=== PATIENT | female | born 1965 | race African-American/Black ===

== ENCOUNTER 2019-08-21 15:01 | Emergency (ER) | payer MEDICAID ==
[~2019-08-21] VITALS: Ht 165.1 cm; Wt 107.0 kg
[2019-08-21 15:17] VITALS: BP 134/75
[2019-08-21 15:39] LABS: BILIRUBIN, URINE NEGATIVE (NEGATIVE); COLOR,URINE AMBER; GLUCOSE, URINE (UA) 4+ (NEGATIVE); KETONES,URINE 1+ (NEGATIVE); LEUKOCYTE ESTERASE ,URINE 1+ (NEGATIVE); NITRITE,URINE NEGATIVE (NEGATIVE); PH,URINE 5 (4.5-8.0); PROTEIN,URINE 1+ (NEGATIVE); UROBILINOGEN,URINE 1 MG/DL (0.0-1.0)
[2019-08-21 15:43] LABS: APPEARANCE,URINE SLIGHTLY CLOUDY
--- NOTE | 2019-08-21 15:56 | Emergency Room Report ---
History of Present Illness General Chief Complaint: Female Urogenital Problems Source: Patient Present Illness HPI 53-year-old female with no known significant past medical history here complaining of 1 week of urinary frequency and urgency and dysuria. Also complains of suprapubic pain and pressure. Complains of minimal pelvic pain. Patient is postmenopausal. Denies any fever and chills, flank pain, nausea vomiting. Denies any vaginal discharge. Denies being sexually active. Has not taken medication for symptom relief. Allergies: Coded Allergies: PENICILLINS (Verified Allergy, Unknown, 08/21/19) Patient History Past Medical History: see triage record Past Surgical History: none Pertinent Family History: none Now: No Immunizations: UTD Reviewed Nursing Documentation: PMH: Agreed; PSxH: Agreed Nursing Documentation-PMH Past Medical History: No Stated History Review of Systems All Other Systems: negative except mentioned in HPI Physical Exam Vital Signs Date Time Temp Pulse Resp B/P (MAP) Pulse Ox O2 Delivery O2 Flow Rate FiO2 08/21/19 15:17 98.4 102 18 134/75 (94) 99 Room Air Sp02 EP Interpretation: reviewed, normal General Appearance: no apparent distress, alert, GCS 15, non-toxic Head: normocephalic, atraumatic Eyes: bilateral eye normal inspection, bilateral eye PERRL ENT: hearing grossly normal, normal pharynx, no angioedema, normal voice Neck: full range of motion, supple/symm/no masses Respiratory: chest non-tender, lungs clear, normal breath sounds, no rhonchi, no wheezing, speaking full sentences Cardiovascular #1: regular rate, rhythm, no edema, no murmur Gastrointestinal: non tender, soft, no mass, no organomegaly, no peritonitis, no bruit, no guarding, no hernia Genitourinary: no CVA tenderness Musculoskeletal: back normal Neurologic: alert, motor strength/tone normal, oriented x3, sensory intact, responsive, speech normal Psychiatric: judgement/insight normal, memory normal, mood/affect normal, no suicidal/homicidal ideation Skin: no rash Lymphatic: no adenopathy Medical Decision Making PA Attestation All my diagnosis and treatment plans were reviewed ad discussed with my supervising physician Dr. Lamar Diagnostic Impression: Primary Impression: UTI (urinary tract infection) ER Course 53-year-old female with no known significant past medical history here complaining of 1 week of urinary frequency and urgency and dysuria. Also complains of suprapubic pain and pressure. Complains of minimal pelvic pain. Patient is postmenopausal. Denies any fever and chills, flank pain, nausea vomiting. Denies any vaginal discharge. Denies being sexually active. Has not taken medication for symptom relief. Ddx considered but are not limited to: UTI, pyelonephritis, urinary incontinence , prolapsed bladder Vital signs: are WNL, pt. is afebrile H&PE are most consistent with: UTI, pelvic pain ORDERS: UA, urine cx, Keflex, Pyridium, Motrin ED INTERVENTIONS: None required at this time. DISCHARGE: At this time pt. is stable for d/c to home. Will provide printed patient care instructions, and any necessary prescriptions. Care plan and follow up instructions have been discussed with the patient prior to discharge. Take medication as directed, follow-up primary care provider, at this time no other imaging or blood work needed as your symptoms are secondary to UTI however if continues to be symptomatic need further evaluation perhaps pelvic ultrasound. If worsening symptoms return to the emergency room Last Vital Signs Date Time Temp Pulse Resp B/P (MAP) Pulse Ox O2 Delivery O2 Flow Rate FiO2 08/21/19 15:17 98.4 102 18 134/75 99 Room Air Disposition: HOME, SELF-CARE Condition: Stable Scripts Ibuprofen* (MOTRIN*) 600 Mg Tablet 600 MG ORAL Q8H PRN for For Pain, #30 TAB 0 Refills Prov: Deepthi Maddox 08/21/19 Phenazopyridine Hcl* (PYRIDIUM*) 200 Mg Tablet 200 MG ORAL THREE TIMES A DAY for 2 Days, #6 TAB 0 Refills Prov: Deepthi Maddox 08/21/19 Cephalexin* (KEFLEX*) 500 Mg Capsule 500 MG ORAL EVERY 12 HOURS for 7 Days, #14 CAP 0 Refills Prov: Deepthi Maddox 08/21/19 Patient Instructions: Urinary Tract Infection Additional Instructions: Take medication as directed, follow-up with your primary care provider, if continued suprapubic pain need to be seen by primary doctor for ultrasound. At this time no further imaging or blood work is needed. Deepthi Maddox Aug 21, 2019 15:56
[2019-08-21] MEDS ORDERED: CEPHALEXIN500 MG ORAL (15:57)
[2019-08-21] MEDS ORDERED: PHENAZOPYRIDIN200 MG ORAL (15:57)
[2019-08-21] MEDS ORDERED: IBUPROFEN600 MG ORAL (15:57)
[2019-08-21 16:13] VITALS: BP 134/75
== END 2019-08-21 16:15 | disposition home or self-care (01) ==
LOC: EMR 16:14
DX: N39.0 Urinary tract infection, site not specified (principal); Z88.0 Allergy status to penicillin
CPT/HCPCS: 81003; 87086; Z7502; 99283

== ENCOUNTER 2020-02-17 16:05 | Emergency (ER) | payer MEDICAID ==
[~2020-02-17] VITALS: Ht 165.1 cm; Wt 99.8 kg
[~2020-02-17 16:05] MED LIST: CEPHALEXIN500 MG ORAL; IBUPROFEN600 MG ORAL; PHENAZOPYRIDIN200 MG ORAL
--- NOTE | 2020-02-17 16:14 | NUR ---
ED Nurse Note: Pt ambulated to ed c/o "boil" pelvis. pt asked to get dressed into gown. pt has visible skin tear below stomach and above pelvis. redness and abscess like bump noted on jing pubis. pt reports this has been here for 3 weeks. pt denies itching, burning upon urination.
[2020-02-17 16:15] VITALS: BP 156/83
[2020-02-17] MEDS ORDERED: Omnipaque-300 100ml vial INJ PRN (16:30)
--- NOTE | 2020-02-17 16:37 | NUR ---
ED Nurse Note: Blood drawn, IV site established; patent and intact. Blood specimen sent to lab
--- NOTE | 2020-02-17 17:04 | NUR ---
ED Nurse Note: Urine specimen colleted and sent to lab.
--- NOTE | 2020-02-17 17:04 | Emergency Room Report ---
History of Present Illness General Chief Complaint: Skin Rash/Abscess Source: Patient Present Illness HPI 54 YO Female presents to the ED c/o 02/26 in severity localized pain, swelling, and erythema of her mid pubic and lower abdominal area x 1 month. Pt. reports progressive symptoms. She denies fevers but reports chills. She denies hx of immune compromise/DM. Pt. is not sure when her last tetanus vaccination was. She denies nausea, vomiting, constipation or diarrhea. Patient denies recent surgery in the affected area. Allergies: Coded Allergies: PENICILLINS (Verified Allergy, Unknown, 08/21/19) COVID-19 Screening Contact w/high risk pt: No Experienced COVID-19 symptoms?: No COVID-19 Testing performed HEALTH INFORMATION DIRECTOR: No Patient History Past Medical History: see triage record Past Surgical History: none Pertinent Family History: none Last Menstrual Period: na Reviewed Nursing Documentation: PMH: Agreed; PSxH: Agreed Nursing Documentation-PMH Past Medical History: No Stated History Hx Cardiac Problems: No Hx Hypertension: No Hx Pacemaker: No Hx Asthma: No Hx COPD: No Hx Diabetes: No Hx Cancer: No Hx Gastrointestinal Problems: No Hx Dialysis: No History Of Psychiatric Problem: No Hx Neurological Problems: No Hx Cerebrovascular Accident: No Hx Seizures: No Review of Systems All Other Systems: negative except mentioned in HPI Physical Exam Vital Signs Date Time Temp Pulse Resp B/P (MAP) Pulse Ox O2 Delivery O2 Flow Rate FiO2 02/17/20 16:09 97.9 111 15 156/83 (107) 97 Room Air Sp02 EP Interpretation: reviewed, normal General Appearance: no apparent distress, alert, GCS 15, non-toxic, obese Head: normocephalic, atraumatic Eyes: bilateral eye normal inspection, bilateral eye PERRL ENT: hearing grossly normal, normal voice Neck: full range of motion Respiratory: lungs clear, normal breath sounds, speaking full sentences Cardiovascular #1: regular rate, rhythm Gastrointestinal: normal bowel sounds, soft, non-distended, other - macerated skin with palpable induration, with warmth and erythema to the midline lower abdomen with extensions down to the mid pubis. Musculoskeletal: normal range of motion, gait/station normal, non-tender Neurologic: alert, motor strength/tone normal, oriented x3, sensory intact, responsive, speech normal Psychiatric: judgement/insight normal Skin: other - macerated skin with palpable induration, with warmth and erythema to the midline lower abdomen with extensions down to the mid pubis. Medical Decision Making PA Attestation Dr. Wilson is my supervising Physician whom patient management has been discussed with. Diagnostic Impression: Primary Impression: Abdominal wall abscess ER Course 54 YO Female presents to the ED c/o 02/26 in severity localized pain, swelling, and erythema of her mid pubic and lower abdominal area x 1 month. Pt. reports progressive symptoms. She denies fevers but reports chills. She denies hx of immune compromise/DM. Pt. is not sure when her last tetanus vaccination was. She denies nausea, vomiting, constipation or diarrhea. Patient denies recent surgery in the affected area. Ddx considered but are not limited to cellulitis, abscess, cystic acne, necrotizing fasciitis, insect bite. Just to name a few. Vital signs: PT. is tachycardic, remaining VS are WNL, pt. is afebrile H&PE are most consistent with abscess with possible involvement of the abdominal wall. ORDERS: -CBC: -CMP: elevated glucose of 320 -Lactic Acid: -Troponin: 0.00 -EKG: WNL 90 BPM NSR -Blood Cultures: Pending - CT Abdomen and Pelvis w. Contrast. ED INTERVENTIONS: -- Tetanus - 1 liter NS - 4mg Morphine IV DISCHARGE: At this time pt. is stable for d/c to home. Will provide printed patient care instructions, and any necessary prescriptions. Care plan and follow up instructions have been discussed with the patient prior to discharge. Labs Test 02/17/20 16:36 02/17/20 17:00 White Blood Count 8.7 K/UL (4.8-10.8) Red Blood Count 4.86 M/UL (4.20-5.40) Hemoglobin 15.1 G/DL (12.0-16.0) Hematocrit 45.8 % (37.0-47.0) Mean Corpuscular Volume 94 FL (80-99) Mean Corpuscular Hemoglobin 31.0 PG (27.0-31.0) Mean Corpuscular Hemoglobin Concent 32.9 G/DL (32.0-36.0) Red Cell Distribution Width 12.4 % (11.6-14.8) Platelet Count 111 K/UL (150-450) Mean Platelet Volume 15.2 FL (6.5-10.1) Neutrophils (%) (Auto) 57.4 % (45.0-75.0) Lymphocytes (%) (Auto) 31.7 % (20.0-45.0) Monocytes (%) (Auto) 8.0 % (1.0-10.0) Eosinophils (%) (Auto) 1.3 % (0.0-3.0) Basophils (%) (Auto) 1.6 % (0.0-2.0) Sodium Level 134 MMOL/L (136-145) Potassium Level 3.5 MMOL/L (3.5-5.1) Chloride Level 98 MMOL/L (98-107) Carbon Dioxide Level 27 MMOL/L (21-32) Anion Gap 10 mmol/L (5-15) Blood Urea Nitrogen 11 mg/dL (7-18) Creatinine 0.9 MG/DL (0.55-1.30) Estimat Glomerular Filtration Rate > 60 mL/min (>60) Glucose Level 320 MG/DL (74-106) Lactic Acid Level 1.90 mmol/L (0.4-2.0) Calcium Level 10.3 MG/DL (8.5-10.1) Total Bilirubin 0.3 MG/DL (0.2-1.0) Aspartate Amino Transf (AST/SGOT) 14 U/L (15-37) Alanine Aminotransferase (ALT/SGPT) 18 U/L (12-78) Alkaline Phosphatase 139 U/L (46-116) Total Creatine Kinase 69 U/L (26-308) Troponin I 0.000 ng/mL (0.000-0.056) Total Protein 8.0 G/DL (6.4-8.2) Albumin 3.0 G/DL (3.4-5.0) Globulin 5.0 g/dL Albumin/Globulin Ratio 0.6 (1.0-2.7) Urine Color Yellow Urine Appearance Clear Urine pH 5 (4.5-8.0) Urine Specific [place] 1.025 (1.005-1.035) Urine Protein Negative (NEGATIVE) Urine Glucose (UA) 4+ (NEGATIVE) Urine Ketones 1+ (NEGATIVE) Urine Blood Negative (NEGATIVE) Urine Nitrite Negative (NEGATIVE) Urine Bilirubin Negative (NEGATIVE) Urine Urobilinogen Normal MG/DL (0.0-1.0) Urine Leukocyte Esterase Negative (NEGATIVE) EKG Diagnostic Results EP Interpretation: Dr. Wilson Rate: normal - 90 bpm Rhythm: NSR ST Segments: no acute changes ASA given to the pt in ED: No PA Scribe Text This Interpretation was scribed by SHANTE Lopez. CT/MRI/US Diagnostic Results CT/MRI/US Diagnostic Results : Imaging Test Ordered: - CT Abdomen and Pelvis w. Contrast. Impression " " --Per official radiology report- Please see report for specific details. Last Vital Signs Date Time Temp Pulse Resp B/P (MAP) Pulse Ox O2 Delivery O2 Flow Rate FiO2 02/17/20 16:15 97.9 78 15 156/83 97 Room Air Status: improved Disposition: HOME, SELF-CARE Condition: Stable Scripts Hydrocodone Bit/Acetaminophen 5-325* (NORCO 5-325 TABLET*) 1 Each Tablet 1 TAB ORAL Q6H PRN for FOR PAIN, #15 TAB 0 Refills Prov: Lily Lopez 02/17/20 Ciprofloxacin* (CIPRO*) 500 Mg Tablet 500 MG PO BID for 7 Days, #14 TAB Prov: Lily Lopez 02/17/20 Referrals: NON PHYSICIAN (PCP) Phu Romero Patient Instructions: Abscess Additional Instructions: Take medications as directed. Do not drink alcohol, drive, or operate heavy machinery while taking [place] as this may cause drowsiness. ~~~~~ FOLLOW UP WITH SURGEON on MONDAY @ 10am. Dr. Romero's office info provided on next page. Return sooner to ED if new symptoms occur, or current symptoms become worse. - Please note that this Emergency Department Report was dictated using [employer] operator reformer technology software, occasionally this can lead to erroneous entry secondary to interpretation by the dictation equipment. Lily Lopez Feb 17, 2020 17:03
[2020-02-17 17:08] LABS: ANION GAP 10 mmol/L (5-15); BLOOD UREA NITROGEN 11 mg/dL (7-18); CALCIUM 10.3 MG/DL (8.5-10.1); CARBON DIOXIDE 27 MMOL/L (21-32); CHLORIDE 98 MMOL/L (98-107); CREATININE 0.9 MG/DL (0.55-1.30); POTASSIUM 3.5 MMOL/L (3.5-5.1); SODIUM 134 MMOL/L (136-145)
[2020-02-17 17:14] LABS: ALANINE AMINOTRANSFERASE 18 U/L (12-78); ALBUMIN/GLOBULIN RATIO 0.6 (1.0-2.7); ALKALINE PHOSPHATASE 139 U/L (46-116); ASPARTATE AMINO TRANSFERASE 14 U/L (15-37); BILIRUBIN,TOTAL 0.3 MG/DL (0.2-1.0); CREATINE KINASE 69 U/L (26-308)
[2020-02-17] MEDS ORDERED: Morphine Sulfate 4mg/ml Inj (IV USE ONLY) IVP ONE (17:15)
[2020-02-17 17:24] LABS: APPEARANCE,URINE CLEAR; BILIRUBIN, URINE NEGATIVE (NEGATIVE); GLUCOSE, URINE (UA) 4+ (NEGATIVE); KETONES,URINE 1+ (NEGATIVE); LEUKOCYTE ESTERASE ,URINE NEGATIVE (NEGATIVE); NITRITE,URINE NEGATIVE (NEGATIVE); PH,URINE 5 (4.5-8.0); PROTEIN,URINE NEGATIVE (NEGATIVE); UROBILINOGEN,URINE NORMAL MG/DL (0.0-1.0)
[2020-02-17 17:25] LABS: BASOPHILS % (AUTO) 1.6 % (0.0-2.0); EOSINOPHILS % (AUTO) 1.3 % (0.0-3.0); HEMATOCRIT 45.8 % (37.0-47.0); HEMOGLOBIN 15.1 G/DL (12.0-16.0); LYMPHOCYTES % (AUTO) 31.7 % (20.0-45.0); MEAN CORPUSCULAR VOLUME 94 FL (80-99); NEUTROPHILS % (AUTO) 57.4 % (45.0-75.0); PLATELET COUNT 111 K/UL (150-450); RED BLOOD COUNT 4.86 M/UL (4.20-5.40); RED CELL DISTRIBUTION WIDTH 12.4 % (11.6-14.8); WHITE BLOOD COUNT 8.7 K/UL (4.8-10.8)
--- NOTE | 2020-02-17 17:27 | NUR ---
ED Nurse Note: Pt taken for CT on wheelchair.
[2020-02-17 17:32] LABS: COLOR,URINE YELLOW
--- NOTE | 2020-02-17 17:40 | NUR ---
ED Nurse Note: Pt returned from CT on wheelchair.
[2020-02-17 18:09] VITALS: BP 143/87
--- NOTE | 2020-02-17 19:07 | NUR ---
HAND-OFF: Report given to MINOR Perdomo.
--- NOTE | 2020-02-17 19:14 | Diagnostic Imaging Report ---
INDICATION: Abdominal pain. TECHNIQUE: Axial computed tomography images of the abdomen and pelvis with intravenous contrast. CTDI is 16.4 mGy and DLP is 899.2 mGy-cm. One or more of the following dose reduction techniques were used: automated exposure control, adjustment of the mA and/or kV according to patient size, use of iterative reconstruction technique. COMPARISON: Unavailable. FINDINGS: Anterior pelvic wall at the bilobed rim-enhancing fluid collection measuring 38 x 30 x 36 mm (kearney images), with adjacent subcutaneous inflammatory changes and skin thickening. The lung bases demonstrate mild bilateral lower lobe subsegmental atelectasis. The liver and spleen are normal in size and free of mass lesions. The gallbladder, bile ducts and pancreas are normal. The portal, superior mesenteric and splenic veins are patent. The adrenal gland are unremarkable. The kidneys are normal in size. No stones, solid lesions or hydronephrosis. Bilateral renal cortical scarring. The appendix is unremarkable (61). No evidence of bowel obstruction. No mural bowel wall thickening. Aorta is normal caliber, with mild vascular calcifications. No ascites or free intraperitoneal air. No enlarged or abnormal appearing lymph nodes. The uterus is present. No adnexal masses are visualized. The urinary bladder is mostly decompressed, limiting evaluation of the lumen. L5-S1 degenerative disc disease. IMPRESSION: Anterior pelvic wall bilobed rim-enhancing fluid collection measuring up to 38 mm with adjacent subcutaneous inflammatory changes and skin thickening. Correlate for superficial abscess. No acute intra-abdominal or pelvic process.
[2020-02-17] MEDS ORDERED: Lidocaine 2% 20mg/ml/EPI 0.01mg/ml 20ml INJ ONE (19:45)
[2020-02-17] MEDS ORDERED: NORCO 5-325 TA1 EAC1 ORAL (20:52)
[2020-02-17] MEDS ORDERED: CIPRO500 MG PO (20:52)
[2020-02-17 21:00] VITALS: BP 127/88
[2020-02-17] MEDS ORDERED: Ciprofloxacin 500mg tab ORAL ONE (21:00)
--- NOTE | 2020-02-17 21:00 | NUR ---
ER DISCHARGE NOTE: Patient is cleared to be discharged per ERMD, pt is aox4, on room air, with stable vital signs. pt was given dc and prescription instructions, pt was able to verbalize understanding, pt id band and iv site removed without complications. pt is able to ambulate with steady gait. pt took all belongings.
== END 2020-02-17 21:00 | disposition home or self-care (01) ==
LOC: EMR 16:20
DX: L02.211 Cutaneous abscess of abdominal wall (principal); Z88.0 Allergy status to penicillin; E66.9 Obesity, unspecified; R00.0 Tachycardia, unspecified
CPT/HCPCS: 36415; 74177; 80053; 81003; 82550; 83605; 84484; 85025; 87040; 93005; 96361; 96374; J2270; J7030; Q9965; Z7502; 99284